=== PATIENT | male | born 1945 | race Hispanic/Latino ===

== ENCOUNTER 2018-11-17 06:57 | Observation (INO) | payer MEDICARE ==
[2018-11-16 15:16] LABS: BASOPHILS % (AUTO) 0.5 % (0.0-5.0); EOSINOPHILS % (AUTO) 5.8 % (0.0-8.0); HEMATOCRIT 42.3 % (42-54); LYMPHOCYTES % (AUTO) 28.8 % (21.0-51.0); MEAN CORPUSCULAR HEMOGLOBIN 30.5 pg (27.0-33.0); MEAN CORPUSCULAR HGB CONC 33.6 g/dL (32.0-36.0); MEAN CORPUSCULAR VOLUME 90.7 fL (79-99); MONOCYTES % (AUTO) 12.6 % (3.0-13.0); NEUTROPHILS % (AUTO) 52.3 % (40.0-77.0); PLATELET COUNT (AUTO) 244 K/uL (130-400); RED BLOOD CELL COUNT(AUTO) 4.66 MIL/uL (4.50-6.20); RED CELL DISTRIBUTION WIDTH 14.3 % (11.0-15.5); WHITE BLOOD COUNT (AUTO) 4.8 K/uL (4.8-10.8)
[2018-11-16 15:17] LABS: CREATININE 0.9 mg/dL (0.5-1.5); POTASSIUM 4.4 mmol/L (3.5-5.1)
[2018-11-16 15:40] VITALS: BP 145/72
--- NOTE | 2018-11-16 15:59 | NUR ---
ASPIRIN PATIENT STATES HE FORGOT TO STOP TAKING ASPIRIN 81 MG AND LAST TOOK IT LAST NIGHT 11/15/[address] BARRIENTOS OFFICE AND SPOKE TO MARY. SHE SPOKE TO DR. BARRIENTOS AND SAID DR. BARRIENTOS HAD SAID IT WAS OK. TO PROCEED WITH SURGERY. ADVISED PATIENT NOT TO TAKE IT TONIGHT. PATIENT AND VERBALIZED UNDERSTANDING.
[2018-11-17] VITALS (17 sets, daily range): BP systolic 112–151; BP diastolic 56–85
[~2018-11-17] VITALS: Ht 174 cm; Wt 78.0 kg
[~2018-11-17 06:57] MED LIST: ASPIRIN PO; CEFAZOLIN SODIUM 1 GM VIAL IVP SCH; LEVO25TA54 PO; METF-444 PO; PARO10TA71 PO; ROSU20TA30 PO
[2018-11-17] MEDS ORDERED: SODIUM CHLORIDE 0.9% 1000ML 1,000 ML IV ONE (07:54)
[2018-11-17] MEDS ORDERED: LIDOCAINE PF 2% 5ML ABBOJECT ONE (08:47)
[2018-11-17] MEDS ORDERED: MIDAZOLAM HCL 1 MG/ML 2ML VIAL ONE (08:47)
[2018-11-17] MEDS ORDERED: ROCURONIUM 10MG/1ML SYR 10 MG/ML ML ONE ×2 (08:48→10:43)
[2018-11-17] MEDS ORDERED: PROPOFOL 10 MG/ML 20ML VIAL IV ONE ×2 (08:48→12:44)
[2018-11-17] MEDS ORDERED: ROPIVACAINE 0.5% 5MG/ML 30ML IJ ONE (08:54)
[2018-11-17] MEDS ORDERED: VANCOMYCIN HCL 1 GM VIAL ONE (09:01)
[2018-11-17] MEDS ORDERED: CEFAZOLIN SODIUM 1 GM VIAL ONE (09:01)
[2018-11-17] MEDS ORDERED: VANCOMYCIN 1GM+NS 250ML 250 ML IV ONE (09:16)
[2018-11-17] MEDS: VANCOMYCIN 1GM+NS 250ML 250 ML IV SCH ×3 (09:23→18:22)
[2018-11-17] MEDS ORDERED: CEFTAZIDIME PENTAHYDRATE 2 GM/VIAL IVP SCH (09:30)
[2018-11-17] MEDS ORDERED: GENTAMICIN SULFATE 80 MG/2 ML VIAL ONE (09:31)
[2018-11-17] MEDS ORDERED: GLYCOPYRROLATE 1 MG/5 ML SYRINGE ONE ×2 (10:14→12:37)
[2018-11-17] MEDS ORDERED: EPHEDRINE SULFATE 50 MG/ML AMPULE ONE (10:24)
[2018-11-17] MEDS ORDERED: PHENYLEPHRINE HCL 10 MG/ML 1ML VIAL IV ONE (11:50)
[2018-11-17] MEDS ORDERED: NEOSTIGMINE 5MG/5ML SYR IV ONE (12:37)
[2018-11-17] MEDS ORDERED: KETOROLAC TROMETHAMINE 30MG/ML ONE (12:40)
[2018-11-17] MEDS ORDERED: POTASSIUM CHLORIDE 10% ELIXIR 20 MEQ/15 ML UDCUP PO PRN (13:00)
[2018-11-17] MEDS ORDERED: CALCIUM CARBONATE 500 MG TABLET PO PRN (13:00)
[2018-11-17] MEDS ORDERED: POTASSIUM CHLORIDE 20 MEQ ERTAB PO PRN (13:00)
[2018-11-17] MEDS ORDERED: LIDOCAINE HCL-MPF 1% 2ML VIAL IVP PRN (13:00)
[2018-11-17] MEDS ORDERED: KETOROLAC TROMETHAMINE 15MG/ML IV PRN (13:00)
[2018-11-17] MEDS ORDERED: DIPHENHYDRAMINE HCL 25 MG CAPSULE PO PRN (13:00)
[2018-11-17] MEDS ORDERED: TEMAZEPAM 15 MG CAPSULE PO PRN (13:00)
[2018-11-17] MEDS ORDERED: HYDROCODONE/ACETAMINOPHEN 5/325 MG TAB PO PRN ×2 (13:00)
[2018-11-17] MEDS: CEFTAZIDIME PENTAHYDRATE 2 GM/VIAL IVP SCH ×2 (13:00→21:00)
[2018-11-17] MEDS ORDERED: POTASSIUM CHLORIDE 20MEQ/100ML 100 ML IV PRN (13:00)
[2018-11-17] MEDS ORDERED: DiphenhydrAMINE HCL 50 MG/ML VIAL IVP PRN (13:00)
[2018-11-17] MEDS ORDERED: PROMETHAZINE HCL 25 MG/ML 1ML AMPULE IM PRN (13:00)
[2018-11-17] MEDS: SODIUM CHLORIDE 0.9% 1000ML 1,000 ML IV SCH ×2 (15:00→19:05)
--- NOTE | 2018-11-17 15:10 | NUR ---
DC PLAN VISITED WITH PATIENT. PATIENT LIVES WITH SPOUSE. INDEPENDENT ABLE TO PERFORM ADL'S. PATIENT HAS NO SERVICES OR DME'S. FEELS SAFE TO RETURN HOME. PATIENT SIGNED [facility] FOR [facility]. INFO SENT PENDING REP RESPONSE. Addendum: 11/17/18 at 1518 by SANDEEP GROSSMAN RN CM Amended: Links added.
[2018-11-17] MEDS: INSULIN HUMULIN R 100 UNIT/ML 3ML SQ SCH ×2 (16:30→21:00)
[2018-11-17] MEDS ORDERED: VANCOMYCIN PROTOCOL PER PHARMACY IV SCH (19:15)
[2018-11-17] MEDS ORDERED: ATORVASTATIN CALCIUM 40 MG TABLET PO SCH (21:00)
[2018-11-17] MEDS ORDERED: PAROXETINE HCL 20 MG TABLET PO SCH (21:00)
[2018-11-17] MEDS ORDERED: METFORMIN HCL 500 MG TAB.SR.24H PO SCH (21:00)
[2018-11-17] MEDS ORDERED: ASPIRIN 81MG TAB.CHEW PO SCH (21:00)
[2018-11-17] MEDS: FAMOTIDINE 20MG TAB 20 MG TAB PO SCH (22:24)
[2018-11-17] MEDS: ENOXAPARIN SODIUM 40 MG/0.4 ML SYRINGE SQ SCH (22:28)
[2018-11-17] MEDS ORDERED: CEFTAZIDIME PENTAHYDRATE 1 GM/VIAL ONE (23:13)
[2018-11-18] MEDS: SODIUM CHLORIDE 0.9% 1000ML 1,000 ML IV SCH (02:46)
[2018-11-18 03:38] VITALS: BP 116/65
[2018-11-18] MEDS ORDERED: CEFTAZIDIME PENTAHYDRATE 1 GM/VIAL ONE (04:00)
[2018-11-18 04:08] LABS: HEMATOCRIT 36.8 % (42-54); MEAN CORPUSCULAR HEMOGLOBIN 30.7 pg (27.0-33.0); MEAN CORPUSCULAR VOLUME 90.3 fL (79-99); PLATELET COUNT (AUTO) 221 K/uL (130-400); RED BLOOD CELL COUNT(AUTO) 4.08 MIL/uL (4.50-6.20); RED CELL DISTRIBUTION WIDTH 14.2 % (11.0-15.5); WHITE BLOOD COUNT (AUTO) 7.7 K/uL (4.8-10.8)
[2018-11-18 04:16] LABS: CREATININE 0.8 mg/dL (0.5-1.5); POTASSIUM 4.8 mmol/L (3.5-5.1)
[2018-11-18] MEDS: CEFTAZIDIME PENTAHYDRATE 2 GM/VIAL IVP SCH (05:00)
[2018-11-18] MEDS: VANCOMYCIN 1GM+NS 250ML 250 ML IV SCH (06:52)
[2018-11-18] MEDS: INSULIN HUMULIN R 100 UNIT/ML 3ML SQ SCH (06:59)
[2018-11-18] MEDS ORDERED: LEVOTHYROXINE 25 MCG TABLET PO SCH (07:30)
[2018-11-18] MEDS: ENOXAPARIN SODIUM 40 MG/0.4 ML SYRINGE SQ SCH (07:59)
[2018-11-18] MEDS: FAMOTIDINE 20MG TAB 20 MG TAB PO SCH (07:59)
[2018-11-18 08:00] VITALS: BP 128/69
[2018-11-18] MEDS ORDERED: TAMSULOSIN HCL 0.4 MG CAP.ER.24H PO SCH (09:00)
[2018-11-18] MEDS ORDERED: POLYETHYLENE GLYCOL 3350 17 GM POWD.PACK PO SCH (09:00)
[2018-11-18] MEDS ORDERED: TYL3 PO (10:11)
[2018-11-18] MEDS ORDERED: LEVO500T89 PO (10:11)
[2018-11-18 11:55] VITALS: BP 124/59
--- NOTE | 2018-11-18 13:45 | NUR ---
Report called to [facility] Nurse Karen Bullard RN.
--- NOTE | 2018-11-18 15:09 | NUR ---
Discharge teaching completed in the room with at side. Emphasis on Dr. Paulino' orders for activity and incision care, sling application, as well as s/s to monitor for, and when to seek emergency care vs dial 911. Pt is to follow up with Dr. Paulino on 11/27, but must call on the next business day to schedule a time. Written rx for Tylenol #3 and Levaquin given to pt. Discussed purpose, route, frequency, and duration of treatment, as well as side effects and adverse effects. PIV removed, tip intact. Dressed with sterile 2x2 and band aid after hemostasis. Hemovac removed from left shoulder per MD orders, tip appears smooth and intact, no jagged or torn edges. Hemostasis achieved. Incision to left arm with 23 intact yasir, no active drainage. Painted with Betadine and dressed with sterile non adherent gauze and op site. Pt wheeled to front lobby by [facility] staff for transport home via private car. Pt in stable condition at time of discharge.
== END 2018-11-18 15:20 | disposition home health service (06) ==
LOC: DAH 06:57 → DAHIP 06:58 → 4AH 13:32
PROVIDERS: ADMIT Orthopaedic Surgery; ATTEND Orthopaedic Surgery
DX: M86.622 Other chronic osteomyelitis, left humerus (principal); J32.9 Chronic sinusitis, unspecified; E78.5 Hyperlipidemia, unspecified; I10 Essential (primary) hypertension; G47.00 Insomnia, unspecified; I13.10 Hypertensive heart and chronic kidney disease without heart failure, with stage 1 through stage 4 chronic kidney disease, or unspecified chronic kidney disease; E03.9 Hypothyroidism, unspecified; E11.69 Type 2 diabetes mellitus with other specified complication; I25.2 Old myocardial infarction; Z96.612 Presence of left artificial shoulder joint; Z95.1 Presence of aortocoronary bypass graft; Z87.891 Personal history of nicotine dependence; Z79.899 Other long term (current) drug therapy; Z79.01 Long term (current) use of anticoagulants; Z83.3 Family history of diabetes mellitus; Z82.49 Family history of ischemic heart disease and other diseases of the circulatory system
CPT/HCPCS: 20680; 23150; 36415 ×2; 73030; 80048 ×2; 82948 ×6; 85025; 85027; 87070; 87076; 87077; 87186; 87205; 88300; 88304; 88311; 96365; 96366 ×2; 96372 ×2; A4218; A4565; A4600; A4649 ×3; A4930 ×2; A6207; A6223; G0378 ×32; J0713 ×4; J1580; J1650 ×2; J1885; J2001; J2250; J2370; J2550; J2704 ×2; J2710; J2795; J3370 ×3; J3490 ×3; J7030 ×2; J0690